=== PATIENT | male | born 1970 | race Caucasian/White ===

== ENCOUNTER → 2021-01-10 11:44 | Outpatient (CLI) | payer MEDICARE, OTHER, SELFPAY ==
[2021-01-10 13:14] LABS: Prostate Specific Ag Screen 0.6 ng/ml (0.0-4.0)
== END ==
PROVIDERS: Visit Provider Urology
DX: Z12.5 Encounter for screening for malignant neoplasm of prostate (principal)
CPT/HCPCS: G0103